=== PATIENT | female | born 1950 | race Caucasian/White ===

== ENCOUNTER 2022-02-22 10:19 | Emergency (ER) | payer MEDICARE, MEDICAID ==
[~2022-02-22] VITALS: Ht 162.6 cm; Wt 81.6 kg
[~2022-02-22 10:19] MED LIST: METO25TA14 PO; [UNRECOGNIZED DRUG - CODE] PO
[2022-02-22 10:41] VITALS: BP 110/70
--- NOTE | 2022-02-22 10:48 | NUR ---
71Y FEMALE BIB SELF DUE TO LIGHTHEADED/DIZZINESS XTODAY. PER PATIENT SHE EXPERICENCED AN EPISODE OF LIGHTHEADESS THIS AM WHEN WAKING UP. PER PATIENT "SHE HAD NOTHING TO EAT LAST NIGHT RESULTING IN HER FEELING DIZZY THIS AM." PT ADMITS TO EATING TOAST THIS AM AND STATED SHE FEELS BETTER AND LESS DIZZY. PT IS WARM TO TOUCH, BUT HAS BEEN OUTSIDE IN HEAT. PT DENIES ANY N/V/D OR ABDOMINAL PAIN. PT ALSO TESTED POSITIVE FOR COVID AT HOME XLAST NIGHT. PT DENIES ANY SOB/FEVER/CHILLS CURRENTLY PMH: DENIES NKA
[2022-02-22] MEDS ORDERED: IBUPROFEN 800 MG TAB PO ONE (11:00)
[2022-02-22] MEDS ORDERED: MECLIZINE 25 MG TAB PO ONE (11:05)
[2022-02-22] MEDS ORDERED: ALBU0.0912 INH (12:27)
[2022-02-22] MEDS ORDERED: PROM118S5 PO (12:27)
[2022-02-22] MEDS ORDERED: SUD30 PO (12:27)
[2022-02-22 12:46] VITALS: BP 123/72
--- NOTE | 2022-02-22 12:46 | NUR ---
Patient discharged with v/s stable. Written and verbal after care instructions given and explained. Patient verbalized understanding. Ambulatory with steady gait. All questions addressed prior to discharge. Advised to follow up with PMD.
--- NOTE | 2022-02-22 14:31 | NUR ---
Chart checked and completed. The patient's care was reviewed and supervised by Ivory Chopra RN.
== END 2022-02-22 12:46 | disposition home or self-care (01) ==
LOC: MED 10:19
DX: U07.1 COVID-19 (principal); R55 Syncope and collapse; I10 Essential (primary) hypertension; Z79.899 Other long term (current) drug therapy
CPT/HCPCS: 71045; 93005; 99283; J8597